=== PATIENT | male | born 1955 | race Caucasian/White ===

== ENCOUNTER 2023-03-30 04:44 | Emergency (ER) | payer MEDICARE ==
[~2023-03-30] VITALS: Ht 177.8 cm; Wt 91.5 kg
[2023-03-30 04:58] VITALS: BP 134/87; PULSE 100; RESP 18; TEMP 98.2; O2SAT 97
== END 2023-03-30 06:29 | disposition left against medical advice (07) ==
LOC: ER 04:45
DX: T14.8XXA Other injury of unspecified body region, initial encounter (principal); R41.0 Disorientation, unspecified; Z53.21 Procedure and treatment not carried out due to patient leaving prior to being seen by health care provider; X58.XXXA Exposure to other specified factors, initial encounter; Y93.89 Activity, other specified; Y92.89 Other specified places as the place of occurrence of the external cause; Y99.8 Other external cause status
CPT/HCPCS: 99281

== ENCOUNTER 2023-04-12 18:14 | Emergency (ER) | payer MEDICARE ==
[~2023-04-12] VITALS: Ht 177.8 cm; Wt 92.4 kg
[2023-04-12 21:17] VITALS: BP 128/79; TEMP 98.9
[2023-04-12] MEDS ORDERED: CefTRIAXone 1000mg IM Kit (w/lidocaine diluent) IM ONE (21:45)
[2023-04-12] MEDS ORDERED: ipratropium/albuterol 3ml nebule NEB ONE (21:45)
[2023-04-12] MEDS ORDERED: ipratropium/albuterol 3ml nebule NEB PRN (21:45)
[2023-04-12 22:15] VITALS: PULSE 104; RESP 18; O2SAT 98
[2023-04-12 22:24] VITALS: PULSE 95; RESP 18; O2SAT 99
[2023-04-12] MEDS ORDERED: AMOX-117 PO (23:23)
[2023-04-12] MEDS ORDERED: ALBU8HFA IH (23:23)
[2023-04-16] MEDS ORDERED: NAPR-56 PO (05:16)
== END 2023-04-12 23:45 | disposition home or self-care (01) ==
LOC: ER 18:15
DX: J18.9 Pneumonia, unspecified organism (principal); Z20.822 Contact with and (suspected) exposure to COVID-19
CPT/HCPCS: 36415; 71045; 87502; 87503; 87811; 94640; 99284; J0696; 94760

== ENCOUNTER 2023-04-14 11:50 | Emergency (ER) | payer MEDICARE ==
[~2023-04-14] VITALS: Ht 177.8 cm; Wt 91.4 kg
[~2023-04-14 11:50] MED LIST: ALBU8HFA IH; AMOX-117 PO
[2023-04-14 13:58] VITALS: BP 126/76; PULSE 98; RESP 18; TEMP 98.2; O2SAT 99
[2023-04-16] MEDS ORDERED: NAPR-56 PO (05:16)
== END 2023-04-14 14:04 | disposition home or self-care (01) ==
LOC: ER 11:51
DX: J18.9 Pneumonia, unspecified organism (principal)
CPT/HCPCS: 71045; 99283

== ENCOUNTER → 2023-04-16 | Emergency (ER) | payer MEDICARE ==
[~2023-04-16] VITALS: Ht 177.8 cm; Wt 91.4 kg
[~2023-04-16] MED LIST changes: +DOXYCYCLINE 100MG CAPSULE PO STA; +NAPR-56 PO; +ibuprofen tablet 400 MG TABLET PO ONE
[2023-04-16 02:08] VITALS: BP 141/86; PULSE 97; RESP 18; TEMP 98.7; O2SAT 92
== END | disposition home or self-care (01) ==
LOC: ER 02:04
DX: S50.01XA Contusion of right elbow, initial encounter (principal); F10.129 Alcohol abuse with intoxication, unspecified; W18.39XA Other fall on same level, initial encounter; Y93.89 Activity, other specified; Y92.89 Other specified places as the place of occurrence of the external cause; Y99.8 Other external cause status; Y90.9 Presence of alcohol in blood, level not specified
CPT/HCPCS: 29105; 73080; 99284; A4565; A6449

== ENCOUNTER 2023-04-17 02:41 | Emergency (ER) | payer MEDICARE ==
[~2023-04-17] VITALS: Ht 167.6 cm; Wt 90.4 kg
[~2023-04-17 02:41] MED LIST changes: -DOXYCYCLINE 100MG CAPSULE PO STA; -ibuprofen tablet 400 MG TABLET PO ONE
[2023-04-17 04:57] VITALS: BP 145/82; PULSE 88; RESP 16; TEMP 98.6; O2SAT 98
[2023-04-18] MEDS ORDERED: iohexol 350MG/ML 100ml bottle IV ONE (00:04)
== END 2023-04-17 04:59 | disposition home or self-care (01) ==
LOC: ER 02:43
DX: S42.434A Nondisplaced fracture (avulsion) of lateral epicondyle of right humerus, initial encounter for closed fracture (principal); Z72.89 Other problems related to lifestyle; Z79.2 Long term (current) use of antibiotics; W01.0XXA Fall on same level from slipping, tripping and stumbling without subsequent striking against object, initial encounter; Y93.89 Activity, other specified; Y92.89 Other specified places as the place of occurrence of the external cause; Y99.8 Other external cause status
CPT/HCPCS: 11740; 29105; 73080; 99283; A6449; Q9967